=== PATIENT | male | born 1980 | race Caucasian/White ===

== ENCOUNTER 2020-10-06 14:50 | Emergency (ER) | payer OTHER, SELFPAY ==
[2020-10-06 14:56] VITALS: BP 116/74; PULSE 100; RESP 16; TEMP 36.7; O2SAT 97; BMI 23.7
[2020-10-06] MEDS: TET,DIPH,PERTUSS(ACELL),VAC/PF 0.5 ML SYRINGE IM (15:41)
[2020-10-06] MEDS: BACITRACIN OINT 0.9 GM PCKT 1 APPLIC TOP (15:41)
[2020-10-06] MEDS: LIDO 1%/SOD BICARB 8.4% (10ML) 10 ML SYRINGE INJ (15:42)
--- NOTE | 2020-10-06 15:48 | PC.NURSE ---
reports wound is painful when moved or touched. reports 0/10 pain when static
--- NOTE | 2020-10-06 16:10 | PC.NURSE ---
provider cleansed wound and sutured, dressed with a bandaid and applied bacitracin
--- NOTE | 2020-10-06 16:27 | ED_ITS ---
HPI - Wound/Laceration General Chief Complaint: Wound/Laceration Stated Complaint: accident, chopped left forearm with machete Time Seen by Provider: 10/06/20 15:35 History of Present Illness HPI narrative: 40-year-old gentleman who was using a brand-new hat that he got for [place] to cut down a vazquez treated was crowding of [place] in his front yd. He managed to slipped and suffered a laceration on the volar aspect of his left wrist. It appears to be skin thickness only and no tendon, fascial, vascular involvement. Related Data Home Medications Medication Instructions Recorded Confirmed DICLOFENAC EPOLAMINE (FLECTOR) 1.3 TP BIDP #0 04/22/12 PROPRANOLOL HYDROCHLORIDE 20 mg PO QDAY #0 04/22/12 (Propranolol HCl) alprazolam [Xanax] 0.5 mg PO Q12HP #0 04/22/12 duloxetine [Cymbalta] 60 mg PO QDAY #0 04/22/12 Allergies Allergy/AdvReac Type Severity Reaction Status Date / Time No Known Drug Allergies Allergy Verified 10/06/20 15:09 Review of Systems Review of Systems Narrative: Pertinent positive and negative findings as per HPI Remainder of review of systems is otherwise unremarkable for Constitutional: Fevers, chills, weakness ENT: No sore throat, neck pain, ear pain CV: Chest pain, palpitations, Respiratory: Cough, wheeze, dyspnea GI: Nausea, vomiting, diarrhea, Patient History Social History Smoking Status: Current every day smoker Smoking Status: Current every day smoker tobacco type: cigarettes Substance Use Type: marijuana Exam Narrative Exam Narrative: General: Alert appropriate in no acute distress Respiratory: Able to speak in full sentences, no obvious respiratory distress Skin: No obvious rashes, warm and dry Neurologic: Grossly intact no obvious asymmetries or abnormalities Psych, appropriate insight and affect, cooperative Extremity: There is a 3 cm full-thickness laceration to the volar portion of his wrist that does not involve any deeper structures be on skin. He is neurovascularly intact distal to this. The wound is clean Initial Vital Signs Initial Vital Signs: Vital Signs Temperature 98.1 F 10/06/20 14:56 Pulse Rate 100 H 10/06/20 14:56 Respiratory Rate 16 10/06/20 14:56 Blood Pressure 116/74 10/06/20 14:56 Pulse Oximetry 97 10/06/20 14:56 Procedures Laceration Repair Left wrist: Site: upper extremity Side (If applicable): left Size (cm): 3 Description: linear Depth: simple, single layer Local Anesthetic: lidocaine 1% and with bicarb Amount of anesthesia used (mL): 5 Pre-repair: wound explored, irrigated extensively and deep structures intact Skin layer closed with: nylon Size (cm): 3-0 Number of sutures: 5 Technique: simple, interrupted Course Orders Ordered: Discontinued Medications Bacitracin (Bacitracin Oint 0.9 Gm Pckt) 1 applic TOP NOW ONE Stop: 10/06/20 15:00 Last Admin: 10/06/20 15:41 Dose: 1 applic Documented by: MCKENZIE Diphtheria/Tetanus/Acell Pertussis (Tet,Diph,Pertuss(Acell),Vac/Pf 0.5 Ml Syringe) 0.5 ml IM .ONCE ONE Stop: 10/06/20 14:59 Last Admin: 10/06/20 15:41 Dose: 0.5 ml Documented by: MCKENZIE Lidocaine/Sodium Bicarbonate (Lido 1%/Sod Bicarb 8.4% (10ml) 10 Ml Syringe) 10 ml INJ NOW ONE Stop: 10/06/20 15:00 Last Admin: 10/06/20 15:42 Dose: 10 ml Documented by: MCKENZIE Lidocaine/Sodium Bicarbonate (Lido 1%/Sod Bicarb 8.4% (10ml) 10 Ml Syringe) 10 ml INJ NOW ONE Stop: 10/06/20 15:44 Vital Signs Vital signs: Vital Signs - 8 hr 10/06/20 14:56 Temperature 98.1 F Pulse Rate 100 H Respiratory Rate 16 Blood Pressure 116/[address] [facility] - Wound/Laceration Medical Records Attestation: I reviewed the patient's medical records. [facility] Narrative Medical decision making narrative: 40-year-old gentleman with a clean laceration to the volar surface of the left wrist this repaired without difficulty. His tetanus status is updated today. There is no complication with the wound nor deeper structures involved. Wound care instructions are given and he is safe for home discharge Discharge Plan Departure Patient Disposition: Home Clinical Impression: Laceration Instructions: DI for Laceration Repair, Tetanus, Diphtheria (Td) Vaccine Activity Restrictions/Additional Instructions: Thank you for coming in today I am glad you managed to cut nothing but the skin on your wrist today. Because it is over the flexion portion of your wrist I am going to suggest that we leave the stitches in for approximately 14 days. Please keep the area clean and dry. You will likely find keeping a Band-Aid over the stitches will be helpful in avoiding catching the actual sutures on clothing in additional material If you notice increasing redness, pain, numbness or pain radiating into your fingers or difficulty in moving your wrist these are all signs of infection and you need to have the wound further evaluated Your tetanus status was updated today I wish you the best Prescriptions: No Action alprazolam [Xanax] 0.5 MG tablet 0.5 mg PO Q12HP Qty: 0 RF: 0 duloxetine [Cymbalta] 30 MG capsule,delayed release(DR/EC) 60 mg PO QDAY Qty: 0 RF: 0 PROPRANOLOL HYDROCHLORIDE (Propranolol HCl) 20 mg PO QDAY Qty: 0 RF: 0 DICLOFENAC EPOLAMINE (FLECTOR) 1.3 TP BIDP Qty: 0 RF: 0 Referrals: Lise Mills PA-C [Primary Care Provider] -
== END 2020-10-06 16:37 | disposition home or self-care (01) ==
PROVIDERS: Emergency Provider Emergency Medicine; PCP Physician Assistant Medical
DX: S61.512A Laceration without foreign body of left wrist, initial encounter (principal); W45.8XXA Other foreign body or object entering through skin, initial encounter; Z23 Encounter for immunization
CPT/HCPCS: 12002; 90471; 99282; 99283; 90715